=== PATIENT | male | born 1950 | race Caucasian/White ===

== ENCOUNTER 2019-03-10 20:05 | Emergency (ER) | payer OTHER ==
[~2019-03-10] VITALS: Ht 177.8 cm; Wt 77.1 kg
== END 2019-03-10 22:39 | disposition home or self-care (01) ==
LOC: ER 20:05
DX: S90.02XA Contusion of left ankle, initial encounter (principal); W18.30XA Fall on same level, unspecified, initial encounter
CPT/HCPCS: 73610; 76882; 93971; 99284-25

== ENCOUNTER 2019-03-17 07:58 | Emergency (ER) | payer OTHER ==
[~2019-03-17] VITALS: Ht 177.8 cm; Wt 77.1 kg
[2019-03-17] MEDS ORDERED: OMEP20ER PO (09:03)
[2019-03-17] MEDS ORDERED: GABA100 PO (09:03)
[2019-03-17] MEDS ORDERED: PRAMIPEXOLE (09:03)
[2019-03-17] MEDS ORDERED: LAMO25 (09:04)
== END 2019-03-17 10:34 | disposition left against medical advice (07) ==
LOC: ER 07:58
DX: Z00.00 Encounter for general adult medical examination without abnormal findings (principal); Z53.20 Procedure and treatment not carried out because of patient's decision for unspecified reasons; Z87.891 Personal history of nicotine dependence; Z79.899 Other long term (current) drug therapy